=== PATIENT | female | born 1960 | race Caucasian/White ===

== ENCOUNTER 2017-12-01 05:53 | Day surgery (SDC) | payer OTHER ==
[2017-12-01] MEDS ORDERED: DIPRIVAN 200 MG/20 ML IV ONE (05:54)
[2017-12-01] MEDS ORDERED: Lactated Ringers 1,000 ML IV ONE ×2 (06:28→08:20)
[2017-12-01] MEDS ORDERED: Lactated Ringers 1,000 ML IV SCH (06:30)
[2017-12-01 08:50] VITALS: BP 132/78; PULSE 73; O2SAT 98
--- NOTE | 2017-12-01 10:48 | OP ---
SURGERY DATE/TIME: 12/01/2017717 PREOPERATIVE DIAGNOSIS: Screening exam. POSTOPERATIVE DIAGNOSIS: Polyp in the transverse colon and scattered sigmoid diverticula. PROCEDURE: Colonoscopy with polypectomy. SURGEON: Dr. Valentine. ANESTHESIA: MAC. Medications given by anesthesia department. HISTORY: The patient is a 57 year-old white female presenting now for her first colonoscopy. She was appraised of the risks of the procedure including the risk of perforation, phlebitis, untoward reaction to medication, bleeding and missed lesions. The patient verbalized her understanding and desired to have the procedure performed. DESCRIPTION OF PROCEDURE: The patient was given the medications by the anesthesia department. She had continuous pulse oximetry, ECG monitoring, intermittent blood pressure monitoring and tidal CO2 monitoring during the examination. She was placed in the left lateral decubitus position. A digital rectal examination was performed and revealed normal anal sphincter tone and no masses. A flexible Olympus pediatric colonoscope was used to intubate the rectum. A view of the colon was developed sequentially to the cecum. Upon insertion and withdrawal there was noted a small polyp in the proximal transverse colon this was biopsied using cold biopsy technique destroying the lesion. There was a second polyp which approximately 1 cm in size which was removed using polypectomy snare and cold biopsy technique. The polyp was retrieved for pathologic evaluation. There was also noted to be scattered sigmoid diverticula. Upon insertion and withdrawal including a retroflex view in the rectum, no other mucosal lesions being noted the scope was removed from the patient who tolerated the procedure well and was sent back to OP recovery in good condition. The prep was noted to be fair. There was still some significant amount of debris in the right side of the colon but not precluding what we thought was an adequate examination.
== END 2017-12-01 09:01 | disposition home or self-care (01) ==
LOC: SDC 05:53
PROVIDERS: ATTEND Family Medicine
DX: Z12.11 Encounter for screening for malignant neoplasm of colon (principal); K63.5 Polyp of colon; K57.30 Diverticulosis of large intestine without perforation or abscess without bleeding
CPT/HCPCS: 88305; 94250; J2704